=== PATIENT | female | born 1950 | race American Indian/Alaskan Native ===

== ENCOUNTER 2017-11-26 11:16 | Emergency (ER) | payer MEDICARE ==
[2017-11-26 11:30] VITALS: PULSE 82; RESP 18; TEMP 97.8; O2SAT 100
--- NOTE | 2017-11-26 11:34 | ED PDOC ---
Arrival/HPI - General Chief Complaint: Trauma Time Seen by Provider: 11/26/17 11:29 Historian: Patient - History of Present Illness Time/Duration: Other (1 day) Symptom Onset: Sudden Symptom Course: Unchanged Quality: Aching Severity Level: Moderate Associated Symptoms (Text): 11/26/17 11:33 Trip and fall outside yesterday injuring nondominant left wrist. No other trauma. Past Medical History - Infectious Disease Hx of Infectious Diseases: None - Reproductive Menopause: Yes - Psychiatric Hx Substance Use: No - Anesthesia Hx Anesthesia: No Family/Social History - Physician Review Nursing Documentation Reviewed: Yes Family/Social History: Unknown Family HX Smoking Status: Never Smoked Hx Alcohol Use: No Hx Substance Use: No Allergies/Home Meds Allergies/Adverse Reactions: Allergies No Known Allergies Allergy (Verified 11/26/17 11:29) Home Medications: Home Meds Medication Instructions Recorded Confirmed No Known Home Med 11/26/17 11/26/17 Review of Systems - Physician Review All systems were reviewed & negative as marked: Yes Physical Exam Vital Signs Temp Pulse Resp BP Pulse Ox 11/26/17 11:38 182/81 H 11/26/17 11:29 97.8 F 82 18 100 Temperature: Afebrile Blood Pressure: Hypertensive Pulse: Regular Respiratory Rate: Normal Appearance: Positive for: Well-Appearing, Non-Toxic, Uncomfortable Pain Distress: Mild Mental Status: Positive for: Alert and Oriented X 3 - Systems Exam Upper Extremity: Present: NORMAL PULSES, Tenderness, Swelling, Neurovascularly Intact, Deformity, Other (Left wrist deformity with swelling and tenderness and diminished range of motion). No: Normal ROM, Erythema Medical Decision Making - RAD Interpretation Radiology Orders: 11/26/17 11:32 WRIST, LEFT 3 VIEWS [RAD] Stat Left wrist 3 view shows no fracture or dislocation. Development Advisor: ED Physician Disposition/Present on Arrival - Present on Arrival Any Indicators Present on Arrival: No History of DVT/PE: No History of Uncontrolled Diabetes: No Urinary Catheter: No History of Decub. Ulcer: No History Surgical Site Infection Following: None - Disposition Have Diagnosis and Disposition been Completed?: Yes Diagnosis: Left wrist sprain Disposition: HOME/ ROUTINE Disposition Time: 12:15 Patient Plan: Discharge Condition: GOOD Discharge Instructions (ExitCare): Wrist Injury (ED) Additional Instructions: Rest ice and elevation. Tylenol or Advil as directed on bottle as needed. Follow -up with PMD. Hypertension check with PMD. Follow up in ER as needed. Forms: [employer] ([place])
[2017-11-26 11:41] VITALS: BP 182/81
--- NOTE | 2017-11-26 13:20 | RAD ---
PROCEDURE: Left Wrist Radiographs. HISTORY: trauma COMPARISON: None. FINDINGS: BONES: Normal. No fracture. JOINTS: Normal. No dislocation. SOFT TISSUES: Normal. OTHER FINDINGS: None. IMPRESSION: Normal left wrist radiographs.
== END 2017-11-26 12:21 | disposition home or self-care (01) ==
LOC: ED 11:16
DX: S63.502A Unspecified sprain of left wrist, initial encounter (principal); W01.0XXA Fall on same level from slipping, tripping and stumbling without subsequent striking against object, initial encounter